=== PATIENT | female | born 1955 | race Caucasian/White ===

== ENCOUNTER 2018-03-10 11:05 | Day surgery (SDC) | payer OTHER, SELFPAY ==
--- NOTE | 2018-03-10 | IMM_PTH ---
PATIENT: JUAN RAMON DU LOC: EN U#:[id number] AGE/SX: 62/F ROOM: RE03/10/[address]: Dr. Dasia Godinez MD : 1955 BED: DIS: 03/10/2018 SPEC #: [id number] RECD: 03/11/18 13:53 STATUS: SONDRA REQ #: [id number] SENIA: 03/10/18 00:[address]: Dasia Godinez DEPT: IMMUNOHISTOCHEMISTRY RECD BY: Hina Ledezma ENTERED: 03/11/18 13:54 SP TYPE: IMMUNO OTHR DR: Dr. Stone Lobo III, MD Tissues: A - Stomach, NOS Procedures: H Pylori (initial) PHYSICIAN & INSTITUTION [place] [id number] SPECIMEN INFORMATION: Tissue Source: A ? Antrum of stomach biopsy Clinical Info: Right upper quadrant abdominal pain, melena Specimen Number: [id number] CPT code: 88019 METHODOLOGY: Deparaffinized sections of prefer/formalin-fixed tissue or PAP/DQ stained slides are incubated with monoclonal/polyclonal antibodies/oligonucleotide probes. Localization is made via biotin free immunoperoxidase method. Appropriate controls are performed and reacted as expected. Results on target cell population are indicated in the following table: RESULTS: ANTIBODY / CLONE RESULT Block A H Pylori (polyclonal) negative These tests were developed and their performance characteristics determined by [facility]. They may not have been cleared or approved by the U.S. Food and Drug Administration. The FDA has determined that such clearance or approval is not necessary. INTERPRETATION: A. Antrum, biopsy: Negative for Helicobacter pylori organisms. SJ:prabhu 03/14/18
[2018-03-10 11:27] VITALS: BP 143/72; PULSE 70; RESP 16; TEMP 37.2; O2SAT 97; BMI 28.1
--- NOTE | 2018-03-10 12:30 | GASB_PTH ---
PATIENT: JUAN RAMON DU LOC: EN U#:[id number] AGE/SX: 62/F ROOM: RE03/10/[address]: Dr. Dasia Gdoinez MD : 1955 BED: DIS: 03/10/2018 SPEC #: [id number] RECD: 03/11/18 11:42 STATUS: SONDRA DEVORAH #: [id number] SENIA: 03/10/18 12:[address]: Dasia Godinez DEPT: SURGICAL PATHOLOGY RECD BY: Yassine Keys ENTERED: 03/11/18 11:42 SP TYPE: Gastric Bx OTHR DR: Dr. Stone Lobo III, MD Tissues: A - Gastric mucous membrane B - Gastric mucous membrane Procedures: Surgery Specimen Level IV HEADER OPERATION: EGD ([facility] [place]) PRE-OP DIAGNOSIS: Right upper quadrant abdominal pain, melena TISSUE SUBMITTED: A ? Antrum of stomach biopsy for H. pylori and path, B ? GE junction biopsy MICROSCOPIC DIAGNOSIS A. Antrum, biopsy: Mild gastritis. B. GE junction, biopsy: Fragments of squamous mucosa with mild chronic inflammation. BENJY:prabhu 03/14/18 COMMENT A. The results of immunohistochemistry for Helicobacter pylori will be reported separately ([id number]). MICROSCOPIC DESCRIPTION Slides are reviewed. A. The specimen shows fragments of gastric mucosa with chronic inflammatory cell infiltrates in the lamina propria consisting of lymphocytes and plasma cells, consistent with mild chronic gastritis. GROSS DESCRIPTION A - Received in fixative is one container labeled with the patient's name and designated antral biopsy. The specimen consists of one irregular fragment of light [place] soft tissue that measures 0.3 x 0.3 x 0.1 cm. The specimen is totally submitted in one cassette. B - Received in fixative is one container labeled with the patient's name and designated GE junction biopsy. The specimen consists of multiple irregular fragments of light [place] soft tissue that in aggregate measure 0.5 x 0.2 x 0.1 cm. The specimen is totally submitted in one cassette. / BENJY:prabhu 03/11/18 TC:3 CPT: 56028 x2
[2018-03-10 12:57] VITALS: BP 124/68; PULSE 73; RESP 18; TEMP 37.1; O2SAT 97
[2018-03-10 13:00] VITALS: BP 124/68; BP 133/76; PULSE 76; RESP 18; O2SAT 96
[2018-03-10 13:05] VITALS: BP 124/68; BP 124/77; PULSE 74; RESP 18; O2SAT 96
[2018-03-10 13:10] VITALS: BP 124/68; BP 130/81; PULSE 64; RESP 18; O2SAT 100
[2018-03-10 13:15] VITALS: BP 124/68; BP 131/73; PULSE 64; RESP 18; O2SAT 100
--- NOTE | 2018-03-10 18:47 | OP.PCM_ITS ---
Report of Operation Date of Procedure: 03/10/18 Pre-Operative Diagnosis: melena Post-Operative Diagnosis: same Surgery/Procedure Performed:: esophagogastroduodenoscopy with biopsies Description of Surgical Findings:: normal EGD, retained bile in stomach Type of Anesthesia:: MAC Anesthesiologist: Chirag Escobedo Specimen's removed: mucosal biopsies of antrum of stomach and GE junction Estimated Blood Loss (mL): minimal Fluids Replaced: 350 ml RL Description of Procedure: After informed consent was given, the patient was brought to the endoscopy suite and placed in the upright sitting position. Appropriate time out protocol was followed. Appropriate cardiac, blood pressure, and pulse oximetry monitoring was placed. After stable vital signs were noted, the patient was given intravenous conscious sedation. The posterior pharynx was sprayed with lidocaine spray times two and a bite block was placed. The patient was then placed in the left lateral decubitis position. The upper endoscope was lubricated and inserted into the patient?s mouth and then carefully placed into the patient?s throat. The patient was asked to swallow and the endoscope was then easily advanced into the patient?s esophagus. The endoscope was further advanced down into the patient?s stomach, then past the pylorus, then past the duodenal bulb and then to the second portion of the duodenum. There were no lesions noted in the duodenum. The endoscope was then retracted back into the stomach. Mucosal biopsies with cold grasper forceps were taken of the antrum of the stomach. A retroflex view of the stomach revealed no evidence of any masses. No ulcers, no strictures, no suspicious lesions were noted. The endoscope was retracted into the esophagus. The gastroesophageal junction was slightly irregular and mucosal biopsies were taken with cold grasper forceps. The remainder of the esophagus was normal. The upper endoscope was removed intact. Patient tolerated procedure well. - Complications none noted
== END 2018-03-10 13:40 | disposition home or self-care (01) ==
LOC: EN 11:05 → AC 11:07
PROVIDERS: Family Provider Family Medicine; PCP Family Medicine; Visit Provider Surgery
PROC: 0DJ08ZZ Inspection of Upper Intestinal Tract, Via Natural or Artificial Opening Endoscopic (ICD-10-PCS; CPT 43235; principal; 2018-03-10 12:25)
DX: K29.50 Unspecified chronic gastritis without bleeding (principal); K21.9 Gastro-esophageal reflux disease without esophagitis; K27.9 Peptic ulcer, site unspecified, unspecified as acute or chronic, without hemorrhage or perforation; K92.1 Melena; R10.11 Right upper quadrant pain; E78.00 Pure hypercholesterolemia, unspecified; E03.9 Hypothyroidism, unspecified; M19.90 Unspecified osteoarthritis, unspecified site; M85.80 Other specified disorders of bone density and structure, unspecified site; Z85.048 Personal history of other malignant neoplasm of rectum, rectosigmoid junction, and anus; Z79.899 Other long term (current) drug therapy; Z87.891 Personal history of nicotine dependence
CPT/HCPCS: 43239; 88305; 88342; J7120

== ENCOUNTER 2019-04-21 10:42 | Emergency (ER) | payer OTHER, SELFPAY ==
[2019-04-21 10:43] VITALS: BP 158/126; PULSE 82; RESP 22; TEMP 36.1; O2SAT 96; BMI 29.2
--- NOTE | 2019-04-21 11:33 | VDLE_ITS ---
Reason For Study: LLE pain RIGHT LEFT CFV is compressible, spontaneous, phasic, GSV is normal. competent and demonstrates normal CFV is compressible, spontaneous, phasic, augmentation. competent, and demonstrates normal Procedure augmentation. Exam performed portable in ED. FV is compressible, spontaneous, phasic, The exam was diagnostic. competent and demonstrates normal A preliminary report was called and/or faxed augmentation. to Rachael Sheldon PA & ED. POP V is compressible, spontaneous, phasic, competent and demonstrates normal augmentation. T/P Trunk is compressible. PTV is compressible. LT PerV is compressible. Interpretation Summary There is no evidence of left lower extremity deep vein thrombosis. Left great saphenous vein appears patent and compressible segmentally. Patent and compressible right common femoral vein Ordering Physician: Rachael Sheldon Referring Physician: Stone Lobo Performed By: Nara Dotson, BRY, RVT
--- NOTE | 2019-04-21 11:34 | ED.VIS.GEN ---
History of Present Illness Chief Complaint: Lower Extremity Injury Informant: Patient Onset: Today Context: Sudden Onset Narrative: She presents to the ED with sudden onset of left lower extremity pain that started several hours prior to arrival. She localizes the pain predominantly to her left ankle and posterior calf. She tried taking one aspirin tablet without relief. She denies any trauma. She has never had anything like this before. She denies any recent long travel, history of malignancy, or use of estrogen. She does not have any history of DVT. She denies any back pain or upper left extremity pain. Past Medical History - Allergies and Home Meds Allergies/Adverse Reactions: Allergies No Known Allergies Allergy (Verified 04/21/19 10:43) Primary Care Physician: Stone Lobo III, MD [Primary Care Provider] - Smoking Status: Former smoker Review of Systems General: Denies: Chills, Fever, Sweats Eyes: Denies: Visual changes - bilaterally, Diplopia ENT: Denies: Rhinorrhea, Sore throat Cardiovascular: Denies: Chest pain, Palpitations Respiratory: Denies: Dyspnea, Cough, Dyspnea on exertion Gastrointestinal: Denies: Abdominal pain, Nausea, Vomiting, Diarrhea, Melena, Hematochezia Genitourinary: Denies: Dysuria, Hematuria, Frequency Musculoskeletal: Reports: - - LLE pain. Denies: Back pain, Extremity Pain Skin: Denies: Rash, Wounds Neurological: Denies: Headache, Weakness, Numbness Physical Exam Vital Signs/Narrative: Vital Signs Temp Pulse Resp BP Pulse Ox 04/21/19 10:43 97 F L 82 22 H 158/126 H 96 General: Well nourished, Well developed, No Acute Distress Head: Normocephalic, Atraumatic Eyes: Perrl, EOMI ENT: Moist mucous membranes, No rhinorrhea Neck: Supple, Nontender Cardiovascular: Regular rate, Regular rhythm, No murmurs Respiratory: No distress, CTA bilaterally, Chest nontender Abdomen: Soft, Nontender, Nondistended, Normal bowel sounds Back: Nontender, Normal Inspection Extremities: No edema, Calf Tenderness, - - Pt is exquisitely tender to palpation over her left ankle and left calf. No edema, erythema. Small area of ecchymosis over left proximal calf. No palpable cords. Negative Homans sign. Full range of motion of bilateral lower extremities. DP and PT pulses 2+. Normal sensation. Skin: Normal color, No rash Neurological: Alert, Oriented x3, Cranial nerves II-XII grossly intact, Normal Strength, Normal Sensation Psychological: Normal affect, Normal Mood Diagnostic/Tx/Re-eval - Medical Decision Making Pt presents to the ED with acute onset of atraumatic left leg pain. She appears well and nontoxic. No PE/DVT risk factors. Ultrasound confirms no acute DVT. Patient was given [place] tablet for analgesia. This did alleviate some of her pain and she was able to ambulate throughout the emergency department. At this time, it is unclear the etiology of her pain. She will be given a prednisone burst. She is also given several [place] tablets for breakthrough pain. There were no red flags for narcotic abuse on OARRS report. She was advised to follow-up with PCP if symptoms persist or worsen. Educated on signs/symptoms to return to the ED. She is provided discharge instructions and agreeable to plan. Impression: Acute left leg pain. Disposition: Home stable ED Disposition - Plan for ED Patient: Disposition: Home or Assisted Living Diagnosis: Left leg pain Instructions: Possible Causes of Low Back or Leg Pain Prescriptions: Hydrocodone/Acetaminophen [[place] 5-325 Tablet] 1 ea PO Q8H PRN PRN 3 Days #4 tab PRN Reason: Pain Prescription Printed predniSONE tablet 40 mg PO DAILY 5 Days #10 tab Prescription Printed Referrals: Stone Lobo III, MD [Primary Care Provider] -
[2019-04-21] MEDS: HYDROcodone Bitartrate/Apap 5/325 Tablet PO (12:06)
== END 2019-04-21 13:17 | disposition home or self-care (01) ==
PROVIDERS: Emergency Provider Physician Assistant; Family Provider Family Medicine; PCP Family Medicine
DX: M79.662 Pain in left lower leg (principal); Z87.891 Personal history of nicotine dependence
CPT/HCPCS: 93971; 99283

== ENCOUNTER → 2019-06-02 13:13 | Outpatient (CLI) | payer OTHER, SELFPAY ==
[2019-06-02 14:17] LABS: D-Dimer Quantitative (DVT/PE) 0.81 FEU/ug/m (0.27-0.49)
== END ==
PROVIDERS: Family Provider Family Medicine; PCP Family Medicine; Referring Provider Nurse Practitioner; Visit Provider Nurse Practitioner
DX: R06.02 Shortness of breath (principal)
CPT/HCPCS: 83880; 85379

== ENCOUNTER 2019-06-02 15:45 | Observation (INO) | payer OTHER, SELFPAY ==
[2019-06-02] VITALS (7 sets, daily range): BP systolic 131–164; BP diastolic 67–105; PULSE 61–93; RESP 15–17; TEMP 36.7–36.8; O2SAT 95–99; BMI 29.0; BMI 28.5; BMI 28.6
--- NOTE | 2019-06-02 15:55 | CT_ITS ---
STUDY: CTA CHEST REASON FOR EXAM: Female, 64 years old. Shortness of breath RADIATION DOSAGE (If Supplied By Facility): CTDIvol = ( 14.14 ) mGy, DLP = ( 359.81 ) mGycm TECHNIQUE: The examination was performed with the intravenous administration of IV Isovue 370 75CC. Post-processing of the angiographic images was performed, with multiplanar reformation and 3D reconstruction. Individualized dose optimization techniques were used for this CT. COMPARISON: None. FINDINGS: Normal enhancement of the main pulmonary artery and right and left pulmonary arteries. Normal enhancement of the bilateral peripheral pulmonary arteries. There is no demonstrated pulmonary embolism. Normal thoracic aorta and visualized great vessels. There is no demonstrated aortic dissection. Normal heart and pericardium. Normal mediastinum. Normal hilar regions. Normal visualized trachea and bronchi. The lungs are well expanded. An 8 mm nodule is present in the left lower lobe on image 94 series 2. Normal pleura. Normal chest wall structures. Normal osseous structures. Normal visualized upper abdomen. CT/CTA Chest W/WO Contrast IMPRESSION: No pulmonary embolus. 8 mm left lower lobe nodule. Based on the 2017 Fleischner Society Guidelines for Management of Incidentally Detected Pulmonary Nodules, for a single solid lung nodule 6-8mm in size: * If patient is considered low risk for developing lung cancer, follow-up CT at 6-12 months is recommended, then consider CT at 18-24 months. * If patient is considered high risk, follow-up CT at 6-12 months is recommended, then again at 18-24 months. Electronically Signed: Domingo Jansen MD at 17:29 EDT Tel , Service support ,
[2019-06-02 16:41] LABS: ALB/GLOB Ratio 1.4 RATIO (0.9-2.4); AST(SGOT) 20 U/L (15-37); Alanine Aminotransfer ALT/SGPT 27 U/L (13-56); Albumin, Serum 4.2 g/dL (3.2-5.0); Alkaline Phosphatase 54 U/L (45-117); Anion Gap 6 (5-15); BUN 12 mg/dL (7-18); BUN/Creat Ratio 14.1 RATIO (10-20); Calcium,Total 9.1 mg/dL (8.5-10.1); Chloride 110 mmol/L (98-107); Creatinine, Serum 0.85 mg/dL (0.55-1.02); EST Glomerular Filtration Rate 71 mL/min (>60); Est Glom Filt Rate - Afr Amer 86 mL/min (>60); Estimated Creatinine Clearance 61.77 ml/min; Globulin 3.1 g/dL (2.2-4.2); Glucose 94 mg/dL (74-106); Potassium 3.7 mmol/L (3.5-5.1); Protein, Total 7.3 g/dL (6.4-8.2); Sodium Level 144 mmol/L (136-145)
[2019-06-02 16:45] LABS: BNP,B-Type NATRIURETIC PEPTIDE 29.7 pg/mL (0-100)
[2019-06-02 16:49] LABS: Basophil# 0.04 X10^3/uL; Basophil% 0.5 % (0-1); Eosinophil# 0.11 X10^3/uL; Eosinophils% 1.4 % (0-5); Hematocrit 44.9 % (37-47); Lymphocyte % 24.6 % (19-41); Mean Corp Hgb Conc 33.4 g/dL (32-36); Mean Corpuscular Volume 92.8 fL (81-99); Mean Platelet Vol. 10.8 fl (6.2-12.0); Monocyte# 0.64 X10^3/uL; Monocyte% 8.3 % (0-10); NRBC Flagged by Analyzer 0 % (0-5); Neutrophil # 5.01 X10^3/uL (2.7-7.7); Neutrophil % 64.8 % (47-70); Platelet Count 180 K/mm3 (150-450); RBC Distribution Width CV 12.5 % (11.6-14.6); RBC Distribution Width SD 42.8 fl (35.1-43.9); Red Blood Count 4.84 M/mm3 (4.2-5.4); White Blood Count 7.7 K/mm3 (4.4-11.0)
--- NOTE | 2019-06-02 16:58 | ED.DCSUM_ITS ---
History of Present Illness Chief Complaint: Shortness of Breath Informant: Patient Onset: Days Context: Gradual Onset Timing: Intermittent Current Severity: Moderate Maximum Severity: Moderate Narrative: The patient presents to the emergency department shortness of breath. The patient states she is been having shortness of breath for the past few weeks. She went to her primary care. She had an abnormal EKG and was scheduled for an outpatient stress test. She states that she recently traveled to [place] and on the way back, she began have worsening dyspnea. She states if she walks a distance, she feels like she cannot catch her breath. She was seen in the office today. Her EKG was repeated and was unchanged. However, she had an elevated d-dimer. She denies leg edema or orthopnea. She has no history of coronary vascular disease. She does have a remote history of smoking and hyperlipidemia. She denies any fevers or chills. Prior similar symptoms: No Recent Illness/Hospitalization: No Past Medical History - Allergies and Home Meds Allergies/Adverse Reactions: Allergies No Known Allergies Allergy (Verified 04/21/19 10:43) Prior records reviewed: Yes Past Medical History: - - Hyperlipidemia Lives: With Family Smoking Status: Former smoker Review of Systems General: Denies: Chills, Fever, Sweats Eyes: Denies: Visual changes - bilaterally, Diplopia ENT: Denies: Rhinorrhea, Sore throat Cardiovascular: Denies: Chest pain, Palpitations Respiratory: Reports: Dyspnea, Dyspnea on exertion. Denies: Cough Gastrointestinal: Denies: Abdominal pain, Nausea, Vomiting, Diarrhea, Melena, Hematochezia Genitourinary: Denies: Dysuria, Hematuria, Frequency Musculoskeletal: Denies: Back pain, Extremity Pain Skin: Denies: Rash, Wounds Neurological: Denies: Headache, Weakness, Numbness Physical Exam Vital Signs/Narrative: Vital Signs Temp Pulse Resp BP Pulse Ox 06/02/19 15:46 98.1 F 89 17 164/105 H 99 Inital Vital Signs reviewed: Yes General: Well nourished, Well developed, No Acute Distress Head: Normocephalic, Atraumatic Eyes: Perrl, EOMI ENT: Moist mucous membranes, No rhinorrhea Neck: Supple, Nontender Cardiovascular: Regular rate, Regular rhythm, No murmurs Respiratory: No distress, CTA bilaterally, Chest nontender Abdomen: Soft, Nontender, Nondistended, Normal bowel sounds Back: Nontender, Normal Inspection Extremities: Nontender, No edema Skin: Normal color, No rash Neurological: Alert, Oriented x3, Cranial nerves II-XII grossly intact, Normal Strength, Normal Sensation Psychological: Normal affect, Normal Mood Diagnostic/Tx/Re-eval Clinical Impression(s) from Imaging Studies Chest CTA 06/02/19 15:55 IMPRESSION: No pulmonary embolus. 8 mm left lower lobe nodule. Based on the 2017 Fleischner Society Guidelines for Management of Incidentally Detected Pulmonary Nodules, for a single solid lung nodule 6-8mm in size: * If patient is considered low risk for developing lung cancer, follow-up CT at 6-12 months is recommended, then consider CT at 18-24 months. * If patient is considered high risk, follow-up CT at 6-12 months is recommended, then again at 18-24 months. Electronically Signed: Domingo Jansen MD at 17:29 EDT Tel , Service support , Abnormal Lab Results 06/02/19 06/02/19 06/02/19 16:10 16:10 16:10 WBC 7.7 RBC 4.84 Hgb 15.0 Hct 44.9 MCV 92.8 MCH 31.0 MCHC 33.4 RDW Std Deviation 42.8 RDW Coeff of Gabriela 12.5 Plt Count 180 MPV 10.8 Immature Gran % (Auto) 0.400 Neut % (Auto) 64.8 Lymph % (Auto) 24.6 [place] % (Auto) 8.3 Eos % (Auto) 1.4 Baso % (Auto) 0.5 Absolute Neuts (auto) 5.0 Absolute Lymphs (auto) 1.90 Nucleated RBC % 0 Sodium 144 Potassium 3.7 Chloride 110 H Carbon Dioxide 28.0 Anion Gap 6 BUN 12 Creatinine 0.85 Estim Creat Clear Calc 61.77 Est GFR (MDRD) Af Amer 86 Est GFR (MDRD) Non-Af 71 BUN/Creatinine Ratio 14.1 Glucose 94 Calcium 9.1 Total Bilirubin 0.50 AST 20 ALT 27 Alkaline Phosphatase 54 Troponin I < 0.015 B-Natriuretic Peptide 29.7 Total Protein 7.3 Albumin 4.2 Globulin 3.1 Albumin/Globulin Ratio 1.4 - Medical Decision Making The patient presents with dyspnea that is worse with exertion. She had an elevated d-dimer. I was able to review her EKGs from the outpatient facility today. These were unremarkable for acute ischemia. Patient underwent CTA. There was a lung nodule, but no evidence of pulmonary embolus or pericardial effusion. Based on the patient's age and risk factors, I do have some suspicion for cardiac equivalent of her dyspnea. I do feel that she would benefit from observation for cardiac rule out. The patient was discussed with the hospitalist. Impression 1. Exertional dyspnea ED Disposition - Plan for ED Patient:
--- NOTE | 2019-06-02 17:48 | NURSING ---
PCU OBS DARA CROW
--- NOTE | 2019-06-02 18:39 | HP.PCM_ITS ---
Problem List (1) Anginal equivalent Status: Acute History of Present Illness Date of Admission: 06/02/19 Chief Complaint: dyspnea on exertion The patient is a 64 year old F who for the past few weeks has been having dyspnea on exertion. Not associated with chest pain. And was concerned and sought attention in the emergency room. Patient states that symptoms began around 19 May. In the interim, patient did go to [place] but was not on the coast nor in the desert and was away from all the force fires. But is just been having his dyspnea on exertion. Patient was able to state that she was able to run to catch a flight at one point. Patient has no history of asthma and is never had issues like this before. Patient make sure to tell me that she would need something to help her sleep as it is difficult to sleep in the hospital as per her description. She wants to be awake so that she can actively participate in stress test on the second. [] Past Medical History Medical History: Medical History (Last Updated 06/02/19 @ 18:41 by Elvin Dubon DO) Hyperlipidemia E78.5 Allergies No Known Allergies Allergy (Verified 04/21/19 10:43) Home Medications: Ambulatory Orders Medication Instructions Recorded Epi Pen (for allergic rxn) [Epi 0.3 mg IM X1 #2 syringe 04/07/17 Pen] Calcium Carbonate/Vitamin D3 1 each PO BID 03/08/18 [Calcium 600 with Vit D Chew Tb] [place]-3 Fatty Acids [Fish Oil] 500 mg PO DAILY 03/08/18 Triamcinolone 0.025% Cream 1 applic TOPICAL BID PRN PRN 03/08/18 [Kenalog] Acetaminophen/Diphenhydramine 2 tab PO QHS PRN PRN 06/02/19 [Tylenol Pm Ex-Strength Caplet] Alendronate Sodium [Fosamax] 70 mg PO MATIAS 06/02/19 Ascorbic Acid 1,000 mg PO DAILY 06/02/19 Cholecalciferol (Vitamin D3) 2,000 unit PO DAILY 06/02/19 [D3-2000] Glucosam/Chond-Msm1/C/Philip/Bor 1 tab PO DAILY 06/02/19 [Jqbdieghzjk-Qwqgwe-UHQ Caplet] Lysine 500 mg PO DAILY 06/02/19 Magnesium 250 mg PO DAILY 06/02/19 Meloxicam [Mobic] 15 mg PO DAILY 06/02/19 Omeprazole [Prilosec] 20 mg PO DAILY 06/02/19 Rosuvastatin Calcium [Crestor] 20 mg PO QHS 06/02/19 Vitamin B Complex 1 ea PO DAILY 06/02/19 Lives: With Family Smoking Status: Former smoker Tobacco Use: Cigarettes - *Family History Maternal History Items: - - no CAD Review of Systems Constitutional: Denies: Anorexia, Chills, Fever Eyes: Denies: Blurred vision, Double vision HEENT: Denies: Head Aches, Sinus Congestion, Sinus Drainage Cardiovascular: Reports: Edema - Chronic. Denies: Chest Pain, Palpitations Respiratory: Reports: Shortness of breath at rest, Shortness of breath upon exertion. Denies: Cough, Sputum production Gastrointestinal: Denies: Abdominal Pain, Nausea, Vomiting Genitourinary: Denies: Dysuria Musculoskeletal: Denies: Joint Pain, Joint Tenderness Skin: Denies: Rash, Wounds Neurological: Denies: Numbness, Tingling, Focal weakness Psychiatric: Denies: Anxiety, Depression Hematologic/ Lymphatic: Denies: Easy Bruising, Easy Bleeding, Hx of blood clot Comment: Review of systems are otherwise negative except for as mentioned above and in the HPI. VTE Information - Inpt Only VTE Present on Admission: No VTE Mechan Device Prophylaxis: None VTE Pharm Prophylaxis ordered?: No Reason prophylaxis not ordered:: Procedure Not Indicated Patient Problems: Active and Suspected Problems Anginal equivalent (Acute) - Physical Exam Vitals/I&O's: Vital Signs Temp Pulse Resp BP Pulse Ox 36.7 C 77 15 158/98 H 96 06/02/19 18:27 06/02/19 18:30 06/02/19 18:27 06/02/19 18:27 06/02/19 18:27 Oxygen Delivery Method Room Air Weight: 80.7 kg Body Mass Index (BMI) 28.5 General: Alert, Cooperative, No apparent distress HEENT: Atraumatic, Normocephalic Oral: Moist Mucosa, No Gingival or Mucosal Lesions/ Ulcerations Neck: No Nodes, Thyroid Normal Size and Texture Lungs: Clear to auscultation, Normal air movement, No rhonchi, No wheeze, No rales Cardiovascular: Regular rate, Regular Rhythm, Normal S1, Normal S2, No murmurs Abdomen: Bowel Sounds Present, Soft, Non Tender, Non-Distended, No Hepato- splenomegaly Extremities: No edema, No Calf Tenderness Skin: No rashes, No breakdown Musculoskeletal: No Tenderness to Palpation of Joints or Extremities, No Muscle Wasting Psych/Mental Status: Appropriate, Anxious Laboratory Results 06/02/19 16:10: WBC 7.7, RBC 4.84, Hgb 15.0, Hct 44.9, MCV 92.8, MCH 31.0, MCHC 33.4, RDW Std Deviation 42.8, RDW Coeff of Gabriela 12.5, Plt Count 180, MPV 10.8, Immature Gran % (Auto) 0.400, Neut % (Auto) 64.8, Lymph % (Auto) 24.6, [place] % (Auto) 8.3, Eos % (Auto) 1.4, Baso % (Auto) 0.5, Absolute Neuts (auto) 5.0, Absolute Lymphs (auto) 1.90, Nucleated RBC % 0 06/02/19 16:10: Sodium 144, Potassium 3.7, Chloride 110 H, Carbon Dioxide 28.0, Anion Gap 6, BUN 12, Creatinine 0.85, Estim Creat Clear Calc 61.77, Est GFR (MDRD) Af Amer 86, Est GFR (MDRD) Non-Af 71, BUN/Creatinine Ratio 14.1, Glucose 94, Calcium 9.1, Total Bilirubin 0.50, AST 20, ALT 27, Alkaline Phosphatase 54, Troponin I < 0.015, Total Protein 7.3, Albumin 4.2, Globulin 3.1, Albumin/Globulin Ratio 1.4 06/02/19 16:10: B-Natriuretic Peptide 29.7 Clinical Impression(s) from Imaging Studies Chest CTA 06/02/19 15:55 IMPRESSION: No pulmonary embolus. 8 mm left lower lobe nodule. Based on the 2017 Fleischner Society Guidelines for Management of Incidentally Detected Pulmonary Nodules, for a single solid lung nodule 6-8mm in size: * If patient is considered low risk for developing lung cancer, follow-up CT at 6-12 months is recommended, then consider CT at 18-24 months. * If patient is considered high risk, follow-up CT at 6-12 months is recommended, then again at 18-24 months. Electronically Signed: Domingo Jansen MD at 17:29 EDT Tel , Service support , EKG reviewed and showed normal sinus rhythm with a complete right bundle branch block and inferior Q waves. Current Medications Sodium Chloride () 10 - 40 ml IV UD PRN PRN Reason: SALINE FLUSH Assessment/Plan All Active Problems Anginal equivalent (Acute) 1. Possible anginal equivalent * No overt chest pain but has been having dyspnea on exertion for the past few weeks * Work-up here, including CT angiogram has been negative thus far. * Plan is for a treadmill nuclear stress test on the second * We will start the patient on aspirin * I do not feel that this is actually cardiac as patient seems very anxious and also she was able to run to airplane on her recent trip without significant deficits. * I told the patient that if the cardiac work-up is unremarkable if she still having symptoms then she may need to have a pulmonary evaluation. I did tell her that I was concerned that this could be anxiety and recommend that she follow-up with her primary care provider to discuss options for treatment if the remainder of the work-up comes back unremarkable. 2. VTE prophylaxis: Low risk as she is observation status. Code Visit OBSV E&M: 21374 Initial observation care L2
--- NOTE | 2019-06-02 18:48 | EKG12_ITS ---
Test Reason : ADM EKG Blood Pressure : / mmHG Vent. Rate : 060 BPM Atrial Rate : 060 BPM P-R Int : 138 ms QRS Dur : 080 ms QT Int : 414 ms P-R-T Axes : 022 -02 022 degrees QTc Int : 414 ms Normal sinus rhythm Cannot rule out Inferior infarct , age undetermined Abnormal ECG Confirmed by DINA OHARA, YENI ([id number]), commissioning editor ELIESER CARVALHO ([id number]) on 06/07/2019 11:22:36 AM Referred By: Ninfa Joseph Confirmed By:YNEI ARROYO MD
[2019-06-02] MEDS: Aspirin 81 MG TAB.CHEW 324 MG PO (20:00)
[2019-06-02] MEDS: Atorvastatin Calcium 40 MG Tablet PO (21:38)
[2019-06-02] MEDS: Acetaminophen 500 MG Tablet 1000 MG PO (22:24)
[2019-06-02] MEDS: DiphenhydrAMINE 25 MG Capsule 50 MG PO (22:25)
[2019-06-02] MEDS: 0.9% Saline Lock 10 ML Syringe IV (22:26)
[2019-06-03 02:55] VITALS: PULSE 58
[2019-06-03 03:35] VITALS: BP 124/70; PULSE 58; RESP 16; TEMP 36.5; O2SAT 97
[2019-06-03] MEDS: Aspirin E.C. 81 MG Tablet PO ×2 (06:00→06:06)
[2019-06-03 06:42] LABS: Cholesterol 154 mg/dL (200); High Density Lipoprotein 57 mg/dL; Thyroid Stim Hormone (TSH) 5.72 uIU/mL (0.358-3.74); Triglycerides 85 mg/dL; Very Low Density Lipoprotein 17 mg/dL (5-40)
[2019-06-03 07:17] VITALS: PULSE 66
[2019-06-03 07:43] VITALS: BP 165/71; PULSE 72; RESP 16; TEMP 37.2; O2SAT 99
[2019-06-03 09:42] VITALS: BP 124/69; PULSE 72; RESP 17; TEMP 36.7; O2SAT 97
[2019-06-03] MEDS: Calcium Carb/Vitamin D 1 TABLET Tablet PO (09:43)
[2019-06-03] MEDS: Ascorbic Acid 500 MG Tablet 1000 MG PO (09:43)
[2019-06-03] MEDS: Pantoprazole Sodium 20 MG Tablet PO (09:43)
--- NOTE | 2019-06-03 10:47 | STRESSREP ---
Stress Test Report Date: 06-03-19 Procedure: Exercise tolerance test/imaging study Indications: Shortness of breath/dyspnea on exertion: Abnormal ECG Consent: Per the patient Procedure: The patient exercised on a Petr protocol for 6 minutes completing Stage II achieving a peak heart rate of 137 bpm (88 % predicted maximal heart rate) with a peak blood pressure 186/80 mmHg and a peak MET capacity of 7 METs. The baseline ECG demonstrated normal sinus rhythm; poor R wave progression. The peak exercise ECG demonstrated no obvious ECG changes. There were no cardiac dysrhythmias pretest, during exercise, or recovery. The functional capacity was considered average. There was no complaint of chest discomfort during exercise or recovery. The examination was discontinued secondary to dyspnea. Impression: 1. Technically adequate (percent predicted maximal heart rate greater than 85%) exercise tolerance test 2. Peak exercise ECG with no obvious ECG changes 3. There were no cardiac dysrhythmias pretest, during exercise, or recovery 4. Nuclear images pending Myocardial perfusion imaging study: Technique: The patient was injected with 11.5 mCi of technetium 99m Cardiolite and subsequently rest SPECT Cardiolite nuclear imaging was obtained in the horizontal long, vertical long, and short axis views. The patient exercised on a Petr protocol for 6 minutes completing Stage II achieving a peak heart rate of 137 bpm (88 % predicted maximal heart rate) with a peak blood pressure 186/80 mmHg and a peak MET capacity of 7 METs. The patient was injected with 34.4 mCi of technetium 99m Cardiolite and subsequently stress SPECT Cardiolite nuclear imaging was obtained in the horizontal long, vertical long, and short axis views. A gated Cardiolite study at peak stress was obtained. Interpretation: Rest and stress SPECT Cardiolite nuclear imaging status post realignment, normalization, and attenuation correction, demonstrates the appearance of relative uniform tracer uptake and myocardial perfusion appearing within normal limits. There is end systolic thickening and brightening. The gated Cardiolite study demonstrates myocardial thickening and inward wall motion. The reported LVEF is 69 %. Impression: 1. Rest and stress SPECT Cardiolite nuclear imaging demonstrate relative uniform tracer uptake and myocardial perfusion appearing within normal limits. 2. The gated Cardiolite study reports an LVEF of 69 %. This note was generated with Youlicitation software. It may contain incorrect words, spelling, and punctuation that were not noted in checking the note before signing.
[2019-06-03 10:54] LABS: T4 Free Direct 0.91 ng/dL (0.76-1.46)
[2019-06-03 11:01] VITALS: PULSE 68
--- NOTE | 2019-06-03 11:28 | PCM.DC ---
- Discharge Diagnoses Current Active Problems: Current Active and Chronic Problems (Last Updated 06/02/19 @ 18:41 by Elvin Dubon DO) Anginal equivalent (Acute) You will use the following diet at home:: Cardiac Your food should be the consistency of: Regular Your liquids should be the consistency of: Regular/Thin Discharge Activity: Return to Normal Activity Allergies/Adverse Reactions: Allergies No Known Allergies Allergy (Verified 04/21/19 10:43) Medications to take at Discharge Epi Pen (for allergic rxn) 0.3 mg IM X1 #2 syringe 04/07/17 Calcium Carbonate/Vitamin D3 [Calcium 600 with Vit D Chew Tb] 1 each PO BID 03/08/18 [place]-3 Fatty Acids [Fish Oil] 500 mg PO DAILY 03/08/18 Triamcinolone 0.025% Cream [Kenalog] 1 applic TOPICAL BID PRN PRN 03/08/18 Acetaminophen/Diphenhydramine [Tylenol Pm Ex-Strength Caplet] 2 tab PO QHS PRN PRN 06/02/19 Alendronate Sodium [Fosamax] 70 mg PO MATIAS 06/02/19 Ascorbic Acid 1,000 mg PO DAILY 06/02/19 Cholecalciferol (Vitamin D3) [D3-2000] 2,000 unit PO DAILY 06/02/19 Glucosam/Chond-Msm1/C/Philip/Bor [Rgylwwpjdzi-Cmhxhy-OPK Caplet] 1 tab PO DAILY 06/02/19 Lysine 500 mg PO DAILY 06/02/19 Magnesium 250 mg PO DAILY 06/02/19 Meloxicam [Mobic] 15 mg PO DAILY 06/02/19 Omeprazole [Prilosec] 20 mg PO DAILY 06/02/19 Rosuvastatin Calcium [Crestor] 20 mg PO QHS 06/02/19 Vitamin B Complex 1 ea PO DAILY 06/02/19 Primary Care Physician: Stone Lobo III, MD [Primary Care Provider] - Please follow up with your Primary Care Physician in: 1 week Test Results: Test results from this visit will be discussed in further detail at your follow-up appointment, if applicable. Proposed Discharge Date: 06/03/19
--- NOTE | 2019-06-03 13:48 | PCM.DC.SUM ---
<Hero Coelho - Last Filed: 06/03/19 13:48> Discharge Date and Diagnosis Date of Admission: 06/02/19 Date of Discharge: 06/03/19 - Primary Discharge Diagnosis Exertional dyspnea, unclear etiology Anxiety Smoking exposure hx GERD HLD Hospital Course and Treatment Imaging Results: 06/03/19 05:55 Nuclear Stress Test - Treadmil [NM] AM (NON MEDS) Interpretation: Rest and stress SPECT Cardiolite nuclear imaging status post realignment, normalization, and attenuation correction, demonstrates the appearance of relative uniform tracer uptake and myocardial perfusion appearing within normal limits. There is end systolic thickening and brightening. The gated Cardiolite study demonstrates myocardial thickening and inward wall motion. The reported LVEF is 69 %. Impression: 1. Rest and stress SPECT Cardiolite nuclear imaging demonstrate relative uniform tracer uptake and myocardial perfusion appearing within normal limits. 2. The gated Cardiolite study reports an LVEF of 69 %. CT/CTA Chest W/WO Contrast IMPRESSION: No pulmonary embolus. 8 mm left lower lobe nodule. Based on the 2017 Fleischner Society Guidelines for Management of Incidentally Detected Pulmonary Nodules, for a single solid lung nodule 6-8mm in size: * If patient is considered low risk for developing lung cancer, follow-up CT at 6-12 months is recommended, then consider CT at 18-24 months. * If patient is considered high risk, follow-up CT at 6-12 months is recommended, then again at 18-24 months. Operations: None Procedures: Stress test Summary of Care Provided: Hospital course: The patient is a 64 year old F with past medical history of hyperlipidemia, nicotine use and exposure and GERD who presented to the emergency room with complaints of shortness of breath. She denied out right chest pain. She had ongoing dyspnea worse with exertion, and had recent travel across the country to [place]. She had denied exposure to fire, or the coast. She did report that she had been able to run to catch a flight without dyspnea. She also reported recent difficulty sleeping. She had a very anxious a fact during her stay here. In the emergency room she had a negative CT angiogram of the chest, negative troponin, negative EKG. She was admitted to the PCU and placed on telemetry for work-up for anginal equivalent. No events on telemetry overnight. The following day she underwent a stress test which was negative. Troponin was negative x3. I advised her to follow-up with her PCP in 1 week. She did have a history of smoking and grew up with smokers in the house. Advised her to discuss pursuing pulmonary function testing with her primary care physician as an outpatient. I also advised her to discuss her ongoing anxiety with her PCP as well. She was discharged home in stable condition. This patient was seen by Hero Coelho PA-C under the supervision of Doctor Elicia. [] - Physical Exam Vitals/I&O's: Vital Signs Temp Pulse Resp BP Pulse Ox 98.1 F 68 17 124/69 H 97 06/03/19 09:42 06/03/19 11:01 06/03/19 09:42 06/03/19 09:42 06/03/19 09:42 Oxygen Delivery Method Room Air Weight: 177 lb 14.609 oz Body Mass Index (BMI) 28.5 Intake and Output for Last 24 Hours 06/01/19 06/02/19 06/03/19 23:59 23:59 23:59 Intake Total 350 / 350 575 / 575 Balance 350 / 350 575 / 575 General: Alert, Oriented x3, Cooperative HEENT: Atraumatic, PERRLA, EOMI, Normocephalic Neck: Supple, No JVD, Negative Carotid Bruits Lungs: Clear to auscultation, Normal air movement Cardiovascular: Regular rate, No murmurs Abdomen: Bowel Sounds Present, Soft, Non Tender Extremities: No edema, Capillary Refill Less than 3 Seconds Skin: No rashes, No breakdown Musculoskeletal: No Tenderness to Palpation of Joints or Extremities Neurological: Cranial nerves II-XII grossly intact Psych/Mental Status: Anxious, Alert and oriented to time, place, person, mood and affect Laboratory Results 06/02/19 16:10: WBC 7.7, RBC 4.84, Hgb 15.0, Hct 44.9, MCV 92.8, MCH 31.0, MCHC 33.4, RDW Std Deviation 42.8, RDW Coeff of Gabriela 12.5, Plt Count 180, MPV 10.8, Immature Gran % (Auto) 0.400, Neut % (Auto) 64.8, Lymph % (Auto) 24.6, [place] % (Auto) 8.3, Eos % (Auto) 1.4, Baso % (Auto) 0.5, Absolute Neuts (auto) 5.0, Absolute Lymphs (auto) 1.90, Nucleated RBC % 0 06/02/19 16:10: Sodium 144, Potassium 3.7, Chloride 110 H, Carbon Dioxide 28.0, Anion Gap 6, BUN 12, Creatinine 0.85, Estim Creat Clear Calc 61.77, Est GFR (MDRD) Af Amer 86, Est GFR (MDRD) Non-Af 71, BUN/Creatinine Ratio 14.1, Glucose 94, Calcium 9.1, Total Bilirubin 0.50, AST 20, ALT 27, Alkaline Phosphatase 54, Troponin I < 0.015, Total Protein 7.3, Albumin 4.2, Globulin 3.1, Albumin/Globulin Ratio 1.4 06/02/19 16:10: B-Natriuretic Peptide 29.7 06/02/19 19:15: Troponin I < 0.015 06/02/19 22:14: Troponin I < 0.015 06/03/19 05:51: Triglycerides 85, Cholesterol 154, LDL Cholesterol 80, VLDL Cholesterol 17, HDL Cholesterol 57, TSH 5.72 H 06/03/19 05:51: Free T4 0.91 Discharge Diet: Low fat/ Low Cholesterol, 2000 mg Sodium Diet Discharge Activity: Return to Normal Activity Home Medications: Medications to take at Discharge Epi Pen (for allergic rxn) 0.3 mg IM X1 #2 syringe 04/07/17 Calcium Carbonate/Vitamin D3 [Calcium 600 with Vit D Chew Tb] 1 each PO BID 03/08/18 [place]-3 Fatty Acids [Fish Oil] 500 mg PO DAILY 03/08/18 Triamcinolone 0.025% Cream [Kenalog] 1 applic TOPICAL BID PRN PRN 03/08/18 Acetaminophen/Diphenhydramine [Tylenol Pm Ex-Strength Caplet] 2 tab PO QHS PRN PRN 06/02/19 Alendronate Sodium [Fosamax] 70 mg PO MATIAS 06/02/19 Ascorbic Acid 1,000 mg PO DAILY 06/02/19 Cholecalciferol (Vitamin D3) [D3-2000] 2,000 unit PO DAILY 06/02/19 Glucosam/Chond-Msm1/C/Philip/Bor [Fzokydhbidq-Cnzmts-UHC Caplet] 1 tab PO DAILY 06/02/19 Lysine 500 mg PO DAILY 06/02/19 Magnesium 250 mg PO DAILY 06/02/19 Meloxicam [Mobic] 15 mg PO DAILY 06/02/19 Omeprazole [Prilosec] 20 mg PO DAILY 06/02/19 Rosuvastatin Calcium [Crestor] 20 mg PO QHS 06/02/19 Vitamin B Complex 1 ea PO DAILY 06/02/19 Primary Care Physician: Stone Lobo III, MD [Primary Care Provider] - Please follow up with your Primary Care Physician in: 1 week Disposition: Home Minutes spent on discharge:: 35 Patient Condition:: Stable Medical Necessity - Tobacco Use Smoking Status: Former smoker Tobacco Use: Cigarettes Meaningful Use Info Meaningful Use Diagnoses (Choose all that apply): None applicable <Ash Rubi Nataliia - Last Filed: 06/03/19 14:21> Hospital Course and Treatment Imaging Results: 06/03/19 05:55 Nuclear Stress Test - Treadmil [NM] AM (NON MEDS) Summary of Care Provided: Hospitalist note: Discharge summary above reviewed and I concur with the above discharge and treatment plan. Patient was admitted for exertional shortness of breath for evaluation. She had no chest pain. Her EKG revealed normal sinus rhythm without evidence of acute ischemic changes or cardiac arrhythmias. Her troponin was negative. CT angiography done and revealed no PE or dissection, revealed small left lower lobe nodule measuring 8 mm. Her routine blood work was unremarkable. Lipid profile was unremarkable. Her TSH was slightly elevated but her free T4 was normal. She had no symptoms relative of hypo-or hyperthyroidism. Patient underwent nuclear stress test that showed no evidence of stress-induced myocardial ischemia with ejection fraction of 69%. There was no evidence of acute CHF. ACS ruled out. Patient was anxious and restless during this hospital stay and during the encounter. Patient discharged home in a stable medical condition, discharged on her previous home medications without any changes, recommended follow-up with PCP in 1 week. - Physical Exam General: Alert, Oriented x3, Cooperative, No apparent distress. HEENT: Atraumatic, PERRLA, EOMI. Neck: Supple, No JVD, Negative Carotid Bruits, Trachea Midline, Thyroid Normal. Lungs: Clear to auscultation, Normal air movement, No rhonchi, No wheeze, No rales. Cardiovascular: Regular rate, Regular Rhythm, Normal S1, Normal S2, PMI Normal. Abdomen: Bowel Sounds Present, Soft, Non Tender, Non-Distended, No Hepato-splenomegaly. Extremities: No clubbing, No cyanosis, No edema Skin: No rashes, No breakdown Neurological: Cranial nerves are intact neuro grossly intact Vital Signs stable. This note was generated with Red Mapache dictation software. It may contain incorrect words, spelling, and punctuation that were not noted in checking the note before signing. - Physical Exam Vitals/I&O's: Vital Signs Temp Pulse Resp BP Pulse Ox 98.1 F 68 17 124/69 H 97 06/03/19 09:42 06/03/19 11:01 06/03/19 09:42 06/03/19 09:42 06/03/19 09:42 Oxygen Delivery Method Room Air Weight: 177 lb 14.609 oz Body Mass Index (BMI) 28.5 Intake and Output for Last 24 Hours 06/01/19 06/02/19 06/03/19 23:59 23:59 23:59 Intake Total 350 / 350 575 / 575 Balance 350 / 350 575 / 575 Laboratory Results 06/02/19 16:10: WBC 7.7, RBC 4.84, Hgb 15.0, Hct 44.9, MCV 92.8, MCH 31.0, MCHC 33.4, RDW Std Deviation 42.8, RDW Coeff of Gabriela 12.5, Plt Count 180, MPV 10.8, Immature Gran % (Auto) 0.400, Neut % (Auto) 64.8, Lymph % (Auto) 24.6, [place] % (Auto) 8.3, Eos % (Auto) 1.4, Baso % (Auto) 0.5, Absolute Neuts (auto) 5.0, Absolute Lymphs (auto) 1.90, Nucleated RBC % 0 06/02/19 16:10: Sodium 144, Potassium 3.7, Chloride 110 H, Carbon Dioxide 28.0, Anion Gap 6, BUN 12, Creatinine 0.85, Estim Creat Clear Calc 61.77, Est GFR (MDRD) Af Amer 86, Est GFR (MDRD) Non-Af 71, BUN/Creatinine Ratio 14.1, Glucose 94, Calcium 9.1, Total Bilirubin 0.50, AST 20, ALT 27, Alkaline Phosphatase 54, Troponin I < 0.015, Total Protein 7.3, Albumin 4.2, Globulin 3.1, Albumin/Globulin Ratio 1.4 06/02/19 16:10: B-Natriuretic Peptide 29.7 06/02/19 19:15: Troponin I < 0.015 06/02/19 22:14: Troponin I < 0.015 06/03/19 05:51: Triglycerides 85, Cholesterol 154, LDL Cholesterol 80, VLDL Cholesterol 17, HDL Cholesterol 57, TSH 5.72 H 06/03/19 05:51: Free T4 0.91 Disposition: Home Minutes spent on discharge:: 25 Patient Condition:: Stable Meaningful Use Info Meaningful Use Diagnoses (Choose all that apply): None applicable Code Visit OBSV E&M: 45451 Observation care discharge
== END 2019-06-03 11:28 | disposition home or self-care (01) ==
LOC: ED 16:06 → PCU 18:40
PROVIDERS: Physician Assistant; Emergency Provider Emergency Medicine; Family Provider Family Medicine; PCP Family Medicine; Visit Provider Hospitalist
DX: R06.09 Other forms of dyspnea (principal); K21.9 Gastro-esophageal reflux disease without esophagitis; E78.5 Hyperlipidemia, unspecified; Z79.899 Other long term (current) drug therapy; R94.31 Abnormal electrocardiogram [ECG] [EKG]; Z87.891 Personal history of nicotine dependence; R79.89 Other specified abnormal findings of blood chemistry; R91.1 Solitary pulmonary nodule
CPT/HCPCS: 36415; 71275; 78452; 80053; 80061; 83880; 84439; 84443; 84484; 85025; 93005; 93017; 99218; 99285; A9500; Q9967; A4216; G0378

== ENCOUNTER → 2020-01-30 | Outpatient (CLI) | payer MEDICARE, SELFPAY ==
[2019-06-02 18:23] VITALS: BMI 28.5
== END | disposition home or self-care (01) ==
LOC: LABSPEC 11:48
PROVIDERS: PCP Family Medicine; Referring Provider Family Medicine; Visit Provider Family Medicine
DX: B34.9 Viral infection, unspecified (principal)
CPT/HCPCS: 87635; G2023; U0003

== ENCOUNTER → 2020-05-07 17:56 | Outpatient (CLI) | payer MEDICARE, SELFPAY ==
[2019-06-02 18:23] VITALS: BMI 28.5
== END ==
PROVIDERS: PCP Family Medicine; Referring Provider Family Medicine; Visit Provider Family Medicine
DX: B34.9 Viral infection, unspecified (principal)
CPT/HCPCS: 87635; C9803; U0003

== ENCOUNTER 2021-06-21 13:07 | Emergency (ER) | payer MEDICARE, SELFPAY ==
[2021-06-21 13:08] VITALS: BP 137/72; PULSE 78; RESP 20; TEMP 36.9; O2SAT 96; BMI 28.2
--- NOTE | 2021-06-21 14:07 | CT_ITS ---
STUDY: CT BRAIN WITHOUT CONTRAST REASON FOR EXAM: Female, 66 years old. Headache for 6 days hypertension blurry vision shakiness RADIATION DOSAGE (If Supplied By Facility): CTDIvol = ( 44.99 ) mGy, DLP = ( 762.36 ) mGycm TECHNIQUE: Transaxial CT imaging of the brain was performed without administration of intravenous contrast material. Individualized dose optimization techniques were used for this CT. COMPARISON: No relevant priors. FINDINGS: Brain parenchyma is without focal lesions, mass effect, acute intracranial hemorrhage, extra parenchymal fluid collections, hydrocephalus or herniation. The skull is intact. CT/Brain/Head without Contrast IMPRESSION: 1. Normal CT brain. Electronically Signed: Shayne Banegas MD at 14:46 EST Tel , Service support ,
[2021-06-21 14:20] LABS: Absolute Lymphocyte Count 1.14 X10^3/uL (0.83-4.51); Absolute Neutrophil Count 7.7 X10^3/uL (2.0-7.7); Basophil# 0.03 X10^3/uL; Basophil% 0.3 % (0-1); Eosinophil# 0.01 X10^3/uL; Eosinophils% 0.1 % (0-5); Hematocrit 44.9 % (37-47); Hemoglobin 15.1 g/dL (12.0-15.0); Lymphocyte # 1.14 X10^3/ul (0.83-4.51); Lymphocyte % 12.3 % (19-41); Mean Corp Hgb Conc 33.6 g/dL (32-36); Mean Corpuscular Hgb 31.1 pg (27.0-32.0); Mean Corpuscular Volume 92.6 fL (81-99); Mean Platelet Vol. 10.5 fl (6.2-12.0); Monocyte# 0.36 X10^3/uL; Monocyte% 3.9 % (0-10); NRBC Flagged by Analyzer 0 % (0-5); Neutrophil % 82.8 % (47-70); Platelet Count 210 K/mm3 (150-450); RBC Distribution Width CV 13.2 % (11.6-14.6); Red Blood Count 4.85 M/mm3 (4.2-5.4); White Blood Count 9.3 K/mm3 (4.4-11.0)
[2021-06-21] MEDS: DiphenhydrAMINE 50 MG/ML Syringe 25 MG IV (14:21)
[2021-06-21] MEDS: Metoclopramide 10 MG/2 ML Vial IV (14:21)
[2021-06-21] MEDS: 0.9% Normal Saline 1,000 ML 999 ML IV (14:21)
[2021-06-21 14:33] LABS: ALB/GLOB Ratio 1.2 RATIO (0.9-2.4); AST(SGOT) 16 U/L (15-37); Alanine Aminotransfer ALT/SGPT 31 U/L (13-56); Albumin, Serum 4.3 g/dL (3.2-5.0); Alkaline Phosphatase 57 U/L (45-117); Anion Gap 3 (5-15); BUN 16 mg/dL (7-18); BUN/Creat Ratio 18.1 RATIO (10-20); Calcium,Total 9.4 mg/dL (8.5-10.1); Chloride 106 mmol/L (98-107); Creatinine, Serum 0.88 mg/dL (0.55-1.02); EST Glomerular Filtration Rate 68 mL/min (>60); Est Glom Filt Rate - Afr Amer 82 mL/min (>60); Estimated Creatinine Clearance 58.07 ml/min; Globulin 3.5 g/dL (2.2-4.2); Glucose 104 mg/dL (74-106); Protein, Total 7.8 g/dL (6.4-8.2); Sodium Level 139 mmol/L (136-145)
--- NOTE | 2021-06-21 15:02 | EX.ED.VIS.HA ---
HPI History of Present Illness Chief Complaint: Headache Informant: patient and spouse/S.O. Onset/Context/Timing Onset: Weeks (1) Context: Gradual Timing: Continuous Quality -Headache: Positive for Tightness and Other (Pressure) Location: Generalized Worsened by: Nothing Relieved by: Nothing Associated Symptoms/Injury Associated Symptoms: Positive for Blurred Vision and - (Dizziness); Negative for Fever, Nausea, Vomiting, Sore Throat, Sinus Pressure, Numbness, Tingling, Preceding Aura, Photophobia and Visual Loss Injury - FLORES: Negative for Direct Trauma Narrative Narrative: Patient presents with headache that has been getting worse over the past week. Patient states she was started on prednisone for inflammation in her knee. Patient states her headache began after taking the prednisone. Patient states it has been constant. Patient has been taking the prednisone for 6 days. states that the patient had some shaking earlier today. took her blood pressure at home and it was 135/105. repeated the patient's blood pressure later and it was still in the 130s over 110. Patient admits to some dizziness. Patient admits to some blurred vision. Patient denies any nausea or vomiting. Patient denies any fevers or chills. Patient denies any sore throat or sinus pressure. [facility] Medical History (Updated 06/21/21 @ 15:[address] Elvin Rojas, ) Hyperlipidemia Hypertension Home Medications epinephrine 0.3 mg IM X1 #2 syringe 04/07/17 [Rx Last Taken Unknown] Calcium 600 with Vitamin D3 1 ea PO BID 03/08/18 [History Last Taken 06/01/19] triamcinolone acetonide 1 applic TOPICAL BID PRN PRN 03/08/18 [History Last Taken 05/29/19] alendronate 70 mg PO MATIAS 06/02/19 [History Last Taken 05/21/19] ascorbic acid (vitamin C) 1,000 mg PO DAILY 06/02/19 [History Last Taken 06/01/19] cholecalciferol (vitamin D3) 2,000 unit PO DAILY 06/02/19 [History Last Taken 06/01/19] lqhzhmuz-wblkm-pjs5-C-ramiro-bor 1 tab PO DAILY 06/02/19 [History Last Taken 06/01/19] lysine 500 mg PO DAILY 06/02/19 [History Last Taken 06/01/19] magnesium 250 mg PO DAILY 06/02/19 [History Last Taken 06/01/19] meloxicam 15 mg PO DAILY 06/02/19 [History Last Taken 06/01/19] omeprazole 20 mg PO DAILY 06/02/19 [History Last Taken 06/01/19] rosuvastatin 20 mg PO QHS 06/02/19 [History Last Taken 06/01/19] vitamin B complex 1 ea PO DAILY 06/02/19 [History Last Taken 06/01/19] acyclovir 200 mg PO TID 06/21/21 [History Last Taken Unknown] albuterol mcg INHALATION 06/21/21 [History Last Taken Unknown] lisinopril 5 mg PO DAILY 06/21/21 [History Last Taken Unknown] Allergy/AdvReac Type Severity Reaction Status Date / Time No Known Allergies Allergy Verified 06/21/21 13:12 Surgical History (Updated 06/21/21 @ 15:[address] Elvin Rojas DO) Hx of partial thyroidectomy Hx of tubal ligation Social History Smoking Status: Former smoker ROS ROS ED Constitutional Constitutional ED: Denies chills or fever(s) Eyes Eyes: Reports blurry vision; Denies diplopia ENT ENT ED: Denies rhinorrhea or sore throat Cardiovascular Cardiovascular: Denies chest pain or palpitations Respiratory/Chest Respiratory/Chest: Denies cough or dyspnea Gastrointestinal Gastrointestinal: Denies nausea or vomiting Genitourinary Genitourinary ED: Denies dysuria or hematuria Musculoskeletal Musculoskeletal: Denies back pain or neck pain Integumentary Denies abscess or rash Neurologic Neurologic: Reports headache(s); Denies weakness Allergic/Immunologic Allergic/Immunologic ED: Denies mouth swelling or urticaria EXAM Physical Exam Const Vital Signs: 06/21/21 13:08 Temperature 98.5 F Temperature Source Temporal Pulse Rate 78 Respiratory Rate 20 H Blood Pressure 137/72 H Blood Pressure Mean 93 Pulse Ox 96 Oxygen Delivery Method Room Air Positive well nourished and well developed General Appearance ED: well developed HEENT Reports moist mucous membranes Neck supple and no JVD Resp normal respiratory effort and clear to auscultation bilaterally Cardio regular rate, regular rhythm and no murmurs GI normal to inspection, nondistended, normoactive bowel sounds, non-tender and non-distended Palpation: soft Extremity normal to inspection General Extremety ED: Negative for edema or tenderness General Extremity: Negative for edema Neuro oriented x3, CN's II-XII intact bilaterally and no sensory deficits noted Sensorium / Orientation: awake and alert Motor Exam: strength 5/5 throughout Psych mental status grossly normal Skin no rashes or lesions noted MDM MDM MDM Narrative Medical decision making narrative: CT scan of the brain was obtained. There is no acute intracranial abnormality. This was interpreted by the radiologist and reviewed by myself. CBC and comprehensive metabolic profile were obtained were within normal limits. Patient was given IV fluids, Reglan, and Benadryl. Patient was feeling better after this. Patient states her headache has improved greatly. Patient was instructed to rest in a dark quiet room. Patient was instructed to stop her steroids. Patient was instructed to follow-up with her primary care physician in 5 to 7 days. Patient understood and was agreeable with the plan. All questions were answered. Lab Data Labs: Laboratory Results - last 24 hr 06/21/21 06/21/21 14:00 14:00 WBC 9.3 RBC 4.85 Hgb 15.1 H Hct 44.9 MCV 92.6 MCH 31.1 MCHC 33.6 RDW Std Deviation 45.0 H RDW Coeff of Gabriela 13.2 Plt Count 210 MPV 10.5 Immature Gran % (Auto) 0.600 Neut % (Auto) 82.8 H Lymph % (Auto) 12.3 L [place] % (Auto) 3.9 Eos % (Auto) 0.1 Baso % (Auto) 0.3 Absolute Neuts (auto) 7.7 Absolute Lymphs (auto) 1.14 Nucleated RBC % 0 Sodium 139 Potassium 4.0 Chloride 106 Carbon Dioxide 30.0 Anion Gap 3 L BUN 16 Creatinine 0.88 Estim Creat Clear Calc 58.07 Est GFR (MDRD) Af Amer 82 Est GFR (MDRD) Non-Af 68 BUN/Creatinine Ratio 18.1 Glucose 104 Calcium 9.4 Total Bilirubin 0.50 AST 16 ALT 31 Alkaline Phosphatase 57 Total Protein 7.8 Albumin 4.3 Globulin 3.5 Albumin/Globulin Ratio 1.2 Radiography Diagnostic Testing: Clinical Impression(s) from Imaging Studies Brain CT 06/21/21 14:07 IMPRESSION: 1. Normal CT brain. Electronically Signed: Shayne Banegas MD at 14:46 EST Tel , Service support , Discharge Plan Triage Chief Complaint: Headache ED Provider: Elvin Rojas Dx/Rx/DC Orders Clinical Impression: Headache Instructions: ED Headache Unspecified Prescriptions: No Action epinephrine 0.3 MG syringe 0.3 mg IM X1 Qty: 2 RF: 0 triamcinolone acetonide 1 APPLIC cream 1 applic topical BID PRN PRN (Reason: SKIN IRRITATION) RF: 0 Calcium 600 with Vitamin D3 1 EACH tablet,chewable 1 ea PO BID RF: 0 meloxicam 15 MG tablet 15 mg PO DAILY RF: 0 alendronate 70 MG tablet 70 mg PO MATIAS RF: 0 ascorbic acid (vitamin C) 500 MG tablet 1,000 mg PO DAILY RF: 0 omeprazole 20 MG capsule 20 mg PO DAILY RF: 0 magnesium 250 MG tablet 250 mg PO DAILY RF: 0 lysine 500 MG tablet 500 mg PO DAILY RF: 0 vitamin B complex 1 EACH capsule 1 ea PO DAILY RF: 0 rosuvastatin 20 MG tablet 20 mg PO QHS RF: 0 cholecalciferol (vitamin D3) 2,000 UNIT capsule 2,000 unit PO DAILY RF: 0 ywgvxpls-kobct-axc9-C-ramiro-bor 1 EACH tablet 1 tab PO DAILY RF: 0 lisinopril 5 mg Tablet 5 mg PO DAILY RF: 0 acyclovir 200 mg Capsule 200 mg PO TID RF: 0 albuterol 90 mcg/actuation Aerosol INHALATION RF: 0 Primary Care Provider: Adria Pérez Referrals: Adria Pérez MD [Primary Care Provider] - 3-5 Days Disposition Disposition: Home, Self Care
[2021-06-21 16:09] VITALS: BP 125/55; PULSE 78; RESP 16; O2SAT 95
[2021-06-21 16:10] VITALS: BP 125/55; PULSE 78; RESP 16; O2SAT 95
== END 2021-06-21 16:25 | disposition home or self-care (01) ==
PROVIDERS: Emergency Provider Emergency Medicine; PCP Family Medicine
DX: R51.9 Headache, unspecified (principal); I10 Essential (primary) hypertension; E78.5 Hyperlipidemia, unspecified; Z79.899 Other long term (current) drug therapy; Z87.891 Personal history of nicotine dependence
CPT/HCPCS: 70450; 80053; 85025; 96361; 96374; 96375; 99283; J7030; A4216

== ENCOUNTER → 2021-07-18 11:53 | Outpatient (CLI) | payer MEDICARE, SELFPAY ==
--- NOTE | 2021-07-18 12:08 | EKG12_ITS ---
Test Reason : PRE OP Blood Pressure : / mmHG Vent. Rate : 065 BPM Atrial Rate : 065 BPM P-R Int : 132 ms QRS Dur : 078 ms QT Int : 402 ms P-R-T Axes : 032 -05 026 degrees QTc Int : 418 ms Normal sinus rhythm Normal ECG Confirmed by DINA OHARA, YENI ([id number]), assignment desk editor ELIESER CARVALHO ([id number]) on 07/21/2021 9:49:40 AM Referred By: Caleb Baker Confirmed By:YENI ARROYO MD
[2021-07-18 12:58] LABS: Hematocrit 42.3 % (37-47); Hemoglobin 13.9 g/dL (12.0-15.0); Mean Corp Hgb Conc 32.9 g/dL (32-36); Mean Corpuscular Hgb 30.5 pg (27.0-32.0); Mean Platelet Vol. 10.4 fl (6.2-12.0); Platelet Count 202 K/mm3 (150-450); RBC Distribution Width SD 44.4 fl (35.1-43.9); Red Blood Count 4.55 M/mm3 (4.2-5.4); White Blood Count 8.4 K/mm3 (4.4-11.0)
[2021-07-18 13:21] LABS: Anion Gap 5 (5-15); BUN 13 mg/dL (7-18); BUN/Creat Ratio 16.2 RATIO (10-20); Calcium,Total 9.5 mg/dL (8.5-10.1); Chloride 107 mmol/L (98-107); EST Glomerular Filtration Rate 76 mL/min (>60); Est Glom Filt Rate - Afr Amer 92 mL/min (>60); Glucose 100 mg/dL (74-106); Potassium 3.9 mmol/L (3.5-5.1); Sodium Level 141 mmol/L (136-145)
== END ==
PROVIDERS: PCP Family Medicine; Referring Provider Orthopaedic Surgery; Visit Provider Orthopaedic Surgery
DX: Z01.810 Encounter for preprocedural cardiovascular examination (principal)
CPT/HCPCS: 36415; 80048; 85027; 93005

== ENCOUNTER 2021-08-26 10:49 | Outpatient (CLI) | payer MEDICARE, SELFPAY ==
[2021-08-26 11:11] LABS: Absolute Lymphocyte Count 1.71 X10^3/uL (0.83-4.51); Absolute Neutrophil Count 5.3 X10^3/uL (2.0-7.7); Basophil# 0.04 X10^3/uL; Basophil% 0.5 % (0-1); Eosinophil# 0.08 X10^3/uL; Hematocrit 41.4 % (37-47); Hemoglobin 13.5 g/dL (12.0-15.0); Lymphocyte # 1.71 X10^3/ul (0.83-4.51); Lymphocyte % 22.2 % (19-41); Mean Corp Hgb Conc 32.6 g/dL (32-36); Mean Corpuscular Hgb 30.6 pg (27.0-32.0); Mean Corpuscular Volume 93.9 fL (81-99); Mean Platelet Vol. 10.7 fl (6.2-12.0); Monocyte# 0.52 X10^3/uL; Monocyte% 6.8 % (0-10); NRBC Flagged by Analyzer 0 % (0-5); Neutrophil # 5.33 X10^3/uL (2.7-7.7); Neutrophil % 69.2 % (47-70); Platelet Count 207 K/mm3 (150-450); RBC Distribution Width CV 13.5 % (11.6-14.6); RBC Distribution Width SD 46.5 fl (35.1-43.9); Red Blood Count 4.41 M/mm3 (4.2-5.4); White Blood Count 7.7 K/mm3 (4.4-11.0)
[2021-08-26 11:42] LABS: Anion Gap 4 (5-15); BUN 7 mg/dL (7-18); BUN/Creat Ratio 9.6 RATIO (10-20); Calcium,Total 9.1 mg/dL (8.5-10.1); Chloride 111 mmol/L (98-107); Creatinine, Serum 0.73 mg/dL (0.55-1.02); EST Glomerular Filtration Rate 85 mL/min (>60); Est Glom Filt Rate - Afr Amer 103 mL/min (>60); Glucose 95 mg/dL (74-106); Potassium 3.9 mmol/L (3.5-5.1); Sodium Level 143 mmol/L (136-145)
== END 2021-08-26 23:59 | disposition short-term general hospital (02) ==
LOC: LAB 10:53
PROVIDERS: PCP Family Medicine; Referring Provider Physician Assistant Surgical; Visit Provider Physician Assistant Surgical
DX: Z01.818 Encounter for other preprocedural examination (principal)
CPT/HCPCS: 36415; 80048; 85025

== ENCOUNTER → 2022-09-14 | Outpatient (CLI) | payer MEDICARE, SELFPAY | END | disposition home or self-care (01) | LOC: SL 20:08 | PROVIDERS: PCP Family Medicine; Referring Provider Nurse Practitioner Family; Visit Provider Nurse Practitioner Family | DX: G47.33 Obstructive sleep apnea (adult) (pediatric) (principal) | CPT/HCPCS: 95811 ==

== ENCOUNTER → 2023-09-30 | Outpatient (CLI) | payer MEDICARE, SELFPAY ==
--- NOTE | 2023-09-30 13:18 | EKG12_ITS ---
Test Reason : PRE OP Blood Pressure : / mmHG Vent. Rate : 065 BPM Atrial Rate : 065 BPM P-R Int : 136 ms QRS Dur : 082 ms QT Int : 402 ms P-R-T Axes : 031 -14 025 degrees QTc Int : 418 ms Normal sinus rhythm Normal ECG Confirmed by PRABHU OHARA, IMANI ([id number]), proposal editor NAHUM COHEN ([id number]) on 10/04/2023 6:52:59 AM Referred By: Caleb Baker Confirmed By:SAM PELLETIER MD
[2023-09-30 13:42] LABS: Hematocrit 41.5 % (37-47); Hemoglobin 13.6 g/dL (12.0-15.0); Mean Corp Hgb Conc 32.8 g/dL (32-36); Mean Corpuscular Volume 91.6 fL (81-99); Platelet Count 128 K/mm3 (150-450); RBC Distribution Width CV 12.9 % (11.6-14.6); RBC Distribution Width SD 43.9 fl (35.1-43.9); Red Blood Count 4.53 M/mm3 (4.2-5.4); White Blood Count 6.1 K/mm3 (4.4-11.0)
[2023-09-30 14:11] LABS: Anion Gap 2 (5-15); BUN 13 mg/dL (7-18); BUN/Creat Ratio 16.4 RATIO (10-20); Calcium,Total 9.2 mg/dL (8.5-10.1); Chloride 111 mmol/L (98-107); Creatinine, Serum 0.79 mg/dL (0.55-1.02); EST Glomerular Filtration Rate 76 mL/min (>60); Est Glom Filt Rate - Afr Amer 92 mL/min (>60); Glucose 97 mg/dL (74-106); Potassium 3.9 mmol/L (3.5-5.1); Sodium Level 141 mmol/L (136-145)
== END | disposition home or self-care (01) ==
LOC: PSN 13:15
PROVIDERS: PCP Family Medicine; Referring Provider Orthopaedic Surgery; Visit Provider Orthopaedic Surgery
DX: Z01.810 Encounter for preprocedural cardiovascular examination (principal)
CPT/HCPCS: 36415; 80048; 85027; 93005